=== PATIENT | female | born 1960 | race Caucasian/White ===

== ENCOUNTER 2017-01-14 15:40 | Emergency (ER) | payer MEDICAID ==
[2017-01-14] MEDS ORDERED: HYDROCODONE/ACETAMINOPHEN 5-325 MG TABLET PO ONE (16:09)
--- NOTE | 2017-01-14 16:10 | ER Document Report ---
ED Medical Screen (RME) - General Chief Complaint: Breast Problem Stated Complaint: PAIN UNDER LEFT BREAST AND SHOULDER PAIN Time Seen by Provider: 01/14/17 15:59 Mode of Arrival: Ambulatory Information source: Patient TRAVEL OUTSIDE OF THE [place] IN LAST 30 DAYS: No - HPI Patient complains to provider of: Left rib/chest pain Notes: 01/14/17 16:10 Patient is a 56-year-old female presenting to the emergency room today complaining of left rib/chest pain this been going on for years but worsening over the past few months, she denies any trauma or injury - Related Data Allergies/Adverse Reactions: No Known Allergies Allergy (Verified 01/14/17 15:46) Past Medical History Renal/ Medical History: Denies: Hx Peritoneal Dialysis Physical Exam - Vital signs Vitals: Temp Pulse Resp BP Pulse Ox 97.6 F 64 16 132/71 H 98 01/14/17 15:46 01/14/17 15:46 01/14/17 15:46 01/14/17 15:46 01/14/17 15:46 Course - Vital Signs Vital signs: Temp Pulse Resp BP Pulse Ox 97.6 F 64 16 132/71 H 98 01/14/17 15:46 01/14/17 15:46 01/14/17 15:46 01/14/17 15:46 01/14/17 15:46
[2017-01-14 17:02] LABS: ABSOLUTE BASOPHILS # (AUTO) 0.1 10^3/uL (0.0-0.2); ABSOLUTE EOSINOPHILS # (AUTO) 2.1 10^3/uL (0.0-0.6); ABSOLUTE LYMPHOCYTES (AUTO) 2.6 10^3/uL (0.5-4.7); ABSOLUTE MONOCYTES (AUTO) 0.5 10^3/uL (0.1-1.4); ABSOLUTE NEUT (AUTO) 4.3 10^3/uL (1.7-8.2); BASOPHILS % (AUTO) 0.8 % (0-2); HEMOGLOBIN 15.5 g/dL (12.0-15.5); HGB HCT DIFFERENCE 1.5; LYMPHOCYTES % (AUTO) 27.2 % (13-45); MEAN CORPUSCULAR HEMOGLOBIN 30.2 pg (27.0-33.4); MEAN CORPUSCULAR HGB CONC 34.5 g/dL (32.0-36.0); MEAN CORPUSCULAR VOLUME 88 fl (80-97); MONOCYTES % (AUTO) 5.3 % (3-13); RED BLOOD COUNT 5.14 10^6/uL (3.72-5.28); RED CELL DISTRIBUTION WIDTH 13.4 % (11.5-14.0); SEGMENTED NEUTROPHILS % (AUTO) 44.7 % (42-78); WHITE BLOOD COUNT 9.7 10^3/uL (4.0-10.5)
[2017-01-14 17:19] LABS: ALANINE AMINOTRANSFERASE 52 U/L (9-52); ALBUMIN 4.7 g/dL (3.5-5.0); ALKALINE PHOSPHATASE 79 U/L (38-126); ANION GAP 14 (5-19); ASPARTATE AMINO TRANSFERASE 22 U/L (14-36); BILIRUBIN,DIRECT 0.4 mg/dL (0.0-0.4); BILIRUBIN,TOTAL 0.9 mg/dL (0.2-1.3); BLOOD UREA NITROGEN 9 mg/dL (7-20); CALCIUM 9.9 mg/dL (8.4-10.2); CARBON DIOXIDE 27 mmol/L (22-30); CHLORIDE 104 mmol/L (98-107); CREATINE KINASE 66 U/L (30-135); CREATININE RESULT 0.75 mg/dL (0.52-1.25); GLUCOSE 77 mg/dL (75-110); POTASSIUM 4.3 mmol/L (3.6-5.0); SODIUM 144.7 mmol/L (137-145); TOTAL PROTEIN 7.4 g/dL (6.3-8.2)
[2017-01-14 17:31] LABS: CREATINE KINASE MB 0.62 ng/mL (<4.55)
[2017-01-14 17:32] LABS: APPEARANCE,URINE CLEAR; BILIRUBIN,URINE NEGATIVE (NEGATIVE); GLUCOSE, URINE NEGATIVE (NEGATIVE); KETONES,URINE NEGATIVE (NEGATIVE); LEUKOCYTE ESTERASE,URINE NEGATIVE (NEGATIVE); NITRITE,URINE NEGATIVE (NEGATIVE); PROTEIN,URINE NEGATIVE (NEGATIVE); URINE SPECIFIC GRAVITY 1.003; UROBILINOGEN,URINE NEGATIVE mg/dL (<2.0)
[2017-01-14 17:33] LABS: TROPONIN I < 0.012 ng/mL
--- NOTE | 2017-01-14 17:41 | EKG REPORT ---
SEVERITY:- ABNORMAL ECG - SINUS RHYTHM FIRST DEGREE AV BLOCK BORDERLINE LEFT ANTERIOR FASCICULAR BLOCK : Confirmed by: Jesse Pena MD 14-Jan-2017 17:40:32
--- NOTE | 2017-01-14 17:49 | RADIOLOGY REPORT (SQ) ---
EXAM DESCRIPTION: CHEST PA/LAT COMPLETED DATE/TIME: 01/14/2017 5:36 pm REASON FOR STUDY: left rib pain COMPARISON: None. EXAM PARAMETERS: NUMBER OF VIEWS: two views TECHNIQUE: Digital Frontal and Lateral radiographic views of the chest acquired. RADIATION DOSE: NA LIMITATIONS: none FINDINGS: LUNGS AND PLEURA: No consolidation, masses or pneumothorax. No pleural effusion. MEDIASTINUM AND HILAR STRUCTURES: No masses or contour abnormalities. HEART AND VASCULAR STRUCTURES: Heart normal size. No evidence for failure. BONES: No acute findings. HARDWARE: None in the chest. OTHER: No other significant finding. IMPRESSION: No acute finding. TECHNICAL DOCUMENTATION: JOB ID: [id number] [employer]- All Rights Reserved
[2017-01-14] MEDS ORDERED: FAMOTIDINE 20 MG TABLET PO ONE (18:38)
[2017-01-14] MEDS ORDERED: SUCRALFATE 1 GM TABLET PO ONE (18:38)
[2017-01-14] MEDS ORDERED: ONDANSETRON 4 MG TAB.RAPDIS PO ONE (18:38)
--- NOTE | 2017-01-14 18:42 | ER Document Report ---
ED General - General Mode of Arrival: Ambulatory TRAVEL OUTSIDE OF THE [place] IN LAST 30 DAYS: No - HPI Onset: Just prior to arrival Associated symptoms: Other - see HPI <OMER FRANCO - Last Filed: 01/14/17 19:27> <MAJO FREED - Last Filed: 01/14/17 22:54> - General Chief Complaint: Breast Problem Stated Complaint: PAIN UNDER LEFT BREAST AND SHOULDER PAIN Time Seen by Provider: 01/14/17 15:59 Notes: Patient is a 56 year old female who presents to the ED with complaints of left rib pain and possible LUQ abdominal pain. Patient states it has been constant for the last 2 weeks. She states eating improves the pain for a brief period of time. She also has pain on her left shoulder and left neck muscles. She denies a rash. She does have a hx of shingles. (OMER FRANCO) - Related Data Allergies/Adverse Reactions: No Known Allergies Allergy (Verified 01/14/17 15:46) Past Medical History - General Information source: Patient - Social History Smoking Status: Unknown if Ever Smoked - Past Medical History Cardiac Medical History: Reports: Hx Hypercholesterolemia Renal/ Medical History: Denies: Hx Peritoneal Dialysis <OMER FRANCO - Last Filed: 01/14/17 19:27> - Social History Family History: Reviewed & Not Pertinent <MAJO FREED - Last Filed: 01/14/17 22:54> Review of Systems - Review of Systems Constitutional: No symptoms reported EENT: No symptoms reported Cardiovascular: No symptoms reported Respiratory: No symptoms reported Gastrointestinal: See HPI, Abdominal pain Genitourinary: No symptoms reported Female Genitourinary: No symptoms reported Musculoskeletal: See HPI, Other - left rib pain, left shoulder and neck muscle pain Skin: No symptoms reported Hematologic/Lymphatic: No symptoms reported Neurological/Psychological: No symptoms reported <OMER FRANCO - Last Filed: 01/14/17 19:27> Physical Exam - Vital signs Interpretation: Normal - General General appearance: Appears well, Alert - HEENT Head: Normocephalic, Atraumatic Eyes: Normal Pupils: PERRL - Respiratory Respiratory status: No respiratory distress Chest status: Nontender Breath sounds: Normal Chest palpation: Tender - Anterolateral left chest wall. No evidence for rash - Cardiovascular Rhythm: Regular Heart sounds: Normal auscultation Murmur: No - Abdominal Inspection: Normal Distension: No distension Bowel sounds: Normal Tenderness: Nontender Organomegaly: No organomegaly - Back Back: Normal, Nontender - Extremities General upper extremity: Normal inspection, Nontender, Normal color, Normal ROM , Normal temperature General lower extremity: Normal inspection, Nontender, Normal color, Normal ROM , Normal temperature, Normal weight bearing. No: Aida's sign - Neurological Neuro grossly intact: Yes Cognition: Normal Orientation: AAOx4 [place] Coma Scale Eye Opening: Spontaneous [place] Coma Scale Verbal: Oriented [place] Coma Scale Motor: Obeys Commands [place] Coma Scale Total: 15 Speech: Normal Motor strength normal: LUE, RUE, LLE, RLE Sensory: Normal - Psychological Associated symptoms: Normal affect, Normal mood - Skin Skin Temperature: Warm Skin Moisture: Dry Skin Color: Normal <MAJO FREED - Last Filed: 01/14/17 22:54> - Vital signs Vitals: Temp Pulse Resp BP Pulse Ox 97.6 F 64 16 132/71 H 98 01/14/17 15:46 01/14/17 15:46 01/14/17 15:46 01/14/17 15:46 01/14/17 15:46 Course - Laboratory Result Diagrams: 01/14/17 16:50 01/14/17 16:50 <OMER FRANCO - Last Filed: 01/14/17 19:27> - Laboratory Result Diagrams: 01/14/17 16:50 01/14/17 16:50 - Diagnostic Test Radiology reviewed: Reports reviewed - EKG Interpretation by Ma EKG shows normal: Sinus rhythm Rate: Normal Rhythm: NSR <MAJO FREED - Last Filed: 01/14/17 22:54> - Re-evaluation Re-evalutation: 01/14/17 Patient comes in with left-sided abdominal/chest wall pain which she has had over the last few months. Patient states that the pain is sometimes worse a few hours after eating. Patient denies any trouble breathing. Patient has no medical problems. Patient recently moved here and does not have a primary care doctor at this time. Feels better after GI cocktail. Blood work, EKG, chest x- ray with no acute findings. Patient is instructed to follow-up with her doctor and probably GI. She has been given a list of primary's and the contact information for gastroenterology. Return immediately if any worsening or concerning symptoms. Patient understands and agrees with this plan. Stable for discharge. (MAJO FREED) - Vital Signs Vital signs: Temp Pulse Resp BP Pulse Ox 98.1 F 52 L 16 130/66 H 99 01/14/17 21:54 01/14/17 21:54 01/14/17 21:54 01/14/17 21:54 01/14/17 21:54 - Laboratory Laboratory results interpreted by me: 01/14/17 16:50 Eosinophils % 22.0 H Absolute Eosinophils 2.1 H Discharge <OMER FRANCO - Last Filed: 01/14/17 19:27> <MAJO FREED - Last Filed: 01/14/17 22:54> - Discharge Clinical Impression: Chest wall pain Gastritis Qualifiers: Gastritis type: unspecified gastritis Chronicity: acute Gastritis bleeding: presence of bleeding unspecified Qualified Code(s): K29.00 - Acute gastritis without bleeding Condition: Stable Disposition: HOME, SELF-CARE Instructions: Chest Wall Pain ([facility]), Family Physicians / Practices, Gastritis ( [facility]), Gastroenterology Prescriptions: Omeprazole 20 mg PO DAILY #30 capsule. Ranitidine HCl 150 mg PO BID #60 tablet Sucralfate [Carafate 1 gm Tablet] 1 gm PO ACHS #120 tablet Scribe Attestation: 01/14/17 22:53 I personally performed the services described in the documentation, reviewed and edited the documentation which was dictated to the scribe in my presence, and it accurately records my words and actions. (MAJO FREED) Scribe Documentation - Scribe Written by Lesli:: lesli Simpson, 01/14/17, 0729 acting as scribe for :: Pascual <OMER FRANCO - Last Filed: 01/14/17 19:27>
[2017-01-14 22:05] VITALS: BP 130/66
== END 2017-01-14 21:59 | disposition home or self-care (01) ==
LOC: ER 15:40
DX: K29.00 Acute gastritis without bleeding (principal); R07.89 Other chest pain; N64.4 Mastodynia; M25.512 Pain in left shoulder; R07.81 Pleurodynia; R10.12 Left upper quadrant pain
CPT/HCPCS: 93005; 99284; 36415; 82553; 82550; 83690; 85025; 80053; 81001; 84484; 71020; 93010; S0119

== ENCOUNTER → 2017-08-06 | Day surgery (SDC) | payer MEDICAID ==
[~2017-08-06] MED LIST: LIDOCAINE 1% INJ-PF (10 MG/ML) 30 ML SDV ONE
--- NOTE | 2017-08-06 15:41 | RADIOLOGY REPORT (SQ) ---
EXAM DESCRIPTION: MRI LT UPPER JOINT WITH COMPLETED DATE/TIME: 08/06/2017 2:33 pm REASON FOR STUDY: M75.02 ADHESIVE CAPSULITIS OF LEFT SHOULDER M75.02 ADHESIVE CAPSULITIS OF LEFT SH OULDER COMPARISON: None. TECHNIQUE: Left shoulder images acquired and stored on PACS. Oblique coronal, oblique sagittal, and axial imaging to include fat sensitive sequences as T1, water sensitive sequences as FST2/STIR, and c ontrast sensitive sequences as FST1. LIMITATIONS: Motion artifact FINDINGS: JOINT DISTENTION: Adequate distention for interpretation. No contrast in the subacromial bursa. BONE MARROW AND CORTEX: Subchondral cyst formation anterior lateral humeral head. AC JOINT: Type II acromion. Mild AC joint arthropathy. GLENOHUMERAL JOINT: Central cartilage loss. Small osteophytes. ROTATOR CUFF: Cuff musculature is symmetric. There is diffuse tendinopathy. Partial thickness artic ular surface tear of the supraspinatus. No full-thickness tear. LABRUM AND BICEPS LABRAL COMPLEX: Sublabral recess. Increased signal in the biceps anchor and biceps tendon. Distal biceps is normal. INFERIOR LABRAL COMPLEX: Intact. ADJACENT SOFT TISSUES: No masses or nodes. OTHER: No other significant finding. IMPRESSION: 1. Tendinopathy. Partial thickness articular surface tear of the supraspinatus. 2. Biceps tendinopathy. No acute labral tear. 3. AC and glenohumeral joint arthropathy. TECHNICAL DOCUMENTATION: JOB ID: [id number] [employer]- All Rights Reserved Reading location - IP/workstation name: [email or web address]
--- NOTE | 2017-08-06 15:47 | RADIOLOGY REPORT (SQ) ---
EXAM DESCRIPTION: ARTHRO SHOULDER INJECTION; FLUORO/NEEDLE PLACEMENT COMPLETED DATE/TIME: 08/06/2017 3:33 pm REASON FOR STUDY: M75.02 ADHESIVE CAPSULITIS OF LEFT SHOULDER M75.02 ADHESIVE CAPSULITIS OF LEFT SH OULDER COMPARISON: None. FLUOROSCOPY TIME: 18 seconds 3 images saved to PACS. LIMITATIONS: None. PROCEDURE: Procedure, risks, benefits and alternatives explained to patient who then gave written co nsent. The left shoulder was marked and a time out was called for correct procedure verification. Po sterior entry site marked using fluoroscopic guidance. Shoulder prepped and draped using sterile dalila hnique. Local anesthesia achieved using 1% lidocaine injection. Hypodermic needle introduced into t he joint space under direct fluoroscopic visualization. Non-ionic contrast instilled to confirm intra -articular position. Dilute gadolinium solution then injected. Needle removed and entry site covered with sterile bandage. No immediate complications noted. TECHNIQUE: Digital images acquired during fluoroscopy and stored on PACS. Patient immediately take n to the MR suite for additional imaging. INJECTION LOCATION: Posterior left shoulder. CONTRAST TYPE AND AMOUNT: 1 cc Isovue. 10 cc Prohance/Saline mixture. IMPRESSION: SUCCESSFUL NEEDLE PLACEMENT AND INJECTION FOR LEFT SHOULDER MR ARTHROGRAM USING POSTERIO R APPROACH. COMMENT: Quality ID 145: Final reports for procedures using fluoroscopy that document radiation exp osure indices, or exposure time and number of fluorographic images (if radiation exposure indices are not available) TECHNICAL DOCUMENTATION: JOB ID: [id number] [email or web address]- All Rights Reserved Reading location - IP/workstation name: [email or web address]-[email or web address]
--- NOTE | 2017-08-06 15:47 | RADIOLOGY REPORT (SQ) ---
EXAM DESCRIPTION: ARTHRO SHOULDER INJECTION; FLUORO/NEEDLE PLACEMENT COMPLETED DATE/TIME: 08/06/2017 3:33 pm REASON FOR STUDY: M75.02 ADHESIVE CAPSULITIS OF LEFT SHOULDER M75.02 ADHESIVE CAPSULITIS OF LEFT SH OULDER COMPARISON: None. FLUOROSCOPY TIME: 18 seconds 3 images saved to PACS. LIMITATIONS: None. PROCEDURE: Procedure, risks, benefits and alternatives explained to patient who then gave written co nsent. The left shoulder was marked and a time out was called for correct procedure verification. Po sterior entry site marked using fluoroscopic guidance. Shoulder prepped and draped using sterile dalila hnique. Local anesthesia achieved using 1% lidocaine injection. Hypodermic needle introduced into t he joint space under direct fluoroscopic visualization. Non-ionic contrast instilled to confirm intra -articular position. Dilute gadolinium solution then injected. Needle removed and entry site covered with sterile bandage. No immediate complications noted. TECHNIQUE: Digital images acquired during fluoroscopy and stored on PACS. Patient immediately take n to the MR suite for additional imaging. INJECTION LOCATION: Posterior left shoulder. CONTRAST TYPE AND AMOUNT: 1 cc Isovue. 10 cc Prohance/Saline mixture. IMPRESSION: SUCCESSFUL NEEDLE PLACEMENT AND INJECTION FOR LEFT SHOULDER MR ARTHROGRAM USING POSTERIO R APPROACH. COMMENT: Quality ID 145: Final reports for procedures using fluoroscopy that document radiation exp osure indices, or exposure time and number of fluorographic images (if radiation exposure indices are not available) TECHNICAL DOCUMENTATION: JOB ID: [id number] [employer]- All Rights Reserved Reading location - IP/workstation name: [email or web address]-[email or web address]
== END ==
LOC: RAD 12:04
PROVIDERS: ATTEND Orthopaedic Surgery
DX: M75.02 Adhesive capsulitis of left shoulder (principal)
CPT/HCPCS: 73222; 77002; 23350; A9576; J3490

== ENCOUNTER 2017-09-06 10:15 | Day surgery (SDC) | payer MEDICAID ==
[2017-08-29 09:35] LABS: HEMATOCRIT 43.7 % (36.0-47.0); HEMOGLOBIN 15.1 g/dL (12.0-15.5); MEAN CORPUSCULAR HEMOGLOBIN 29.9 pg (27.0-33.4); MEAN CORPUSCULAR HGB CONC 34.6 g/dL (32.0-36.0); MEAN CORPUSCULAR VOLUME 86 fl (80-97); PLATELET COUNT 231 10^3/uL (150-450); RED BLOOD COUNT 5.05 10^6/uL (3.72-5.28); RED CELL DISTRIBUTION WIDTH 13.4 % (11.5-14.0); WHITE BLOOD COUNT 8.3 10^3/uL (4.0-10.5)
[2017-08-29 09:37] LABS: APPEARANCE,URINE SLIGHTLY-CLOUDY; BILIRUBIN,URINE NEGATIVE (NEGATIVE); GLUCOSE, URINE NEGATIVE (NEGATIVE); KETONES,URINE NEGATIVE (NEGATIVE); LEUKOCYTE ESTERASE,URINE NEGATIVE (NEGATIVE); NITRITE,URINE NEGATIVE (NEGATIVE); PROTEIN,URINE NEGATIVE (NEGATIVE); URINE SPECIFIC GRAVITY 1.019
[2017-08-29 09:43] LABS: COLOR,URINE YELLOW
[2017-08-29 09:57] LABS: ANION GAP 12 (5-19); BLOOD UREA NITROGEN 11 mg/dL (7-20); CARBON DIOXIDE 26 mmol/L (22-30); CHLORIDE 104 mmol/L (98-107); GLUCOSE 98 mg/dL (75-110); POTASSIUM 4.5 mmol/L (3.6-5.0)
--- NOTE | 2017-08-29 10:08 | RADIOLOGY REPORT (SQ) ---
EXAM DESCRIPTION: CHEST PA/LATERAL COMPLETED DATE/TIME: 08/29/2017 9:46 am REASON FOR STUDY: PRE-OP COMPARISON: Two-view chest 01/14/2017 EXAM PARAMETERS: NUMBER OF VIEWS: two views TECHNIQUE: Digital Frontal and Lateral radiographic views of the chest acquired. RADIATION DOSE: NA LIMITATIONS: none FINDINGS: LUNGS AND PLEURA: No opacities, masses or pneumothorax. No pleural effusion. MEDIASTINUM AND HILAR STRUCTURES: No masses or contour abnormalities. HEART AND VASCULAR STRUCTURES: Heart normal size. No evidence for failure. BONES: No acute findings. HARDWARE: None in the chest. OTHER: No other significant finding. IMPRESSION: NO SIGNIFICANT RADIOGRAPHIC FINDING IN THE CHEST. TECHNICAL DOCUMENTATION: JOB ID: [id number] [employer] - [employer]- All Rights Reserved Reading location - IP/workstation name: [email or web address]
--- NOTE | 2017-08-29 10:15 | EKG REPORT ---
SEVERITY:- ABNORMAL ECG - SINUS RHYTHM FIRST DEGREE AV BLOCK LEFT AXIS DEVIATION LEFT VENTRICULAR HYPERTROPHY : Confirmed by: Danilo Loredo 29-Aug-2017 10:14:44
[~2017-09-06 10:15] MED LIST changes: +BUPIVACAINE HCL 0.5 % INJ/PF 30 ML SDV ONE; +EPINEPHRINE INJ/PF 1 MG/1 ML AMPULE ONE; +LACTATED RINGERS 1000 ML IV PRN; +LIDOCAINE 0.5% INJ-PF (5 MG/ML) 50 ML SDV SUBCUT PRN; -LIDOCAINE 1% INJ-PF (10 MG/ML) 30 ML SDV ONE
[2017-09-06] MEDS ORDERED: FENTANYL CITRATE INJ/PF 100 MCG/2 ML AMPUL ONE (15:16)
[2017-09-06] MEDS ORDERED: HYDROMORPHONE HCL INJ/PF 2 MG/ML AMPULE ONE (15:17)
[2017-09-06] MEDS ORDERED: MIDAZOLAM 2 MG/2 ML INJ ONE (15:17)
[2017-09-06] MEDS ORDERED: ACETAMINOPHEN 1,000 MG/100 ML RTUPB IV ONE (15:17)
[2017-09-06] MEDS ORDERED: PROPOFOL INJ 200 MG/20 ML VIAL IV ONE (15:17)
[2017-09-06] MEDS ORDERED: SUCCINYLCHOLINE CHLORIDE INJ 200 MG/10 ML VIAL ONE (15:43)
[2017-09-06] MEDS ORDERED: DIPHENHYDRAMINE HCL 50 MG/ML VIAL IV PRN (16:48)
[2017-09-06] MEDS ORDERED: FENTANYL CITRATE INJ/PF 100 MCG/2 ML AMPUL IV PRN ×3 (16:48)
[2017-09-06] MEDS ORDERED: MEPERIDINE HCL/PF INJ 25 MG/1 ML DISP.SYRIN IV PRN (16:48)
[2017-09-06] MEDS: LORAZEPAM INJ 2 MG/1 ML VIAL ONE ×2 (18:43→19:00)
--- NOTE | 2017-09-06 18:50 | Discharge Summary ---
Discharge Summary (SDC) - Discharge Final Diagnosis: Left shoulder arthroscopic extensive debridement, rotator cuff repair, subpectoralis biceps tenodesis Date of Surgery: 09/06/17 Discharge Date: 09/06/17 Condition: Good Treatment or Instructions: Patient is instructed to follow up in 10-14 days. Patient instructed to remove dressing in 4 days then can shower and apply Band- Aids as needed. Patient to wear sling for comfort but okay to remove for shower and pendulum exercises. Pendulum exercises are instructed to be done 3 times a day ideally with breakfast, lunch, dinners and showers. Patient instructed to call if there is any signs of redness or drainage fevers or chills. Prescriptions: Oxycodone HCl/Acetaminophen [Percocet 5-325 mg Tablet] 1 - 2 tab PO ASDIR PRN # 60 tablet PRN Reason: Referrals: FARRAH RUTHERFORD MD [Primary Care Provider] - Discharge Diet: As Tolerated Respiratory Treatments at Home: Deep Breathing/Coughing Discharge Activity: No Driving, No Lifting/Push/Pulling, Walk Frequently Home Care Assistance: None Needed Report the Following to Your Physician Immediately: Shortness of Breath, Vomiting, Increase in Pain, Fever over 101 Degrees, Unusual Bleeding, Redness, Swelling, Warmth, Increased Soreness, Drainage-Yellow, Drainage-Quijano, Drainage- Green, Drainage-Foul Smelling
[2017-09-06] MEDS: FENTANYL CITRATE INJ/PF 100 MCG/2 ML AMPUL ONE ×2 (18:57→19:09)
[2017-09-06] MEDS ORDERED: OXYCODONE-ACETAMINOPHEN 5-325 MG TABLET PO PRN (19:23)
[2017-09-06] MEDS ORDERED: ONDANSETRON HCL INJ/PF 4 MG/2 ML SDV IV PRN (19:24)
[2017-09-06] MEDS: OXYCODONE-ACETAMINOPHEN 5-325 MG TABLET PO PRN (22:05)
[2017-09-06] MEDS: CEFAZOLIN 2 GM/D5W RTU 2 GM/50 ML RTUPB IV PRN ×3 (22:06→22:27)
[2017-09-06] MEDS ORDERED: CLONAZEPAM 1 MG TABLET PO ONE (22:15)
[2017-09-06] MEDS ORDERED: ATORVASTATIN CALCIUM 20 MG TABLET PO ONE (22:15)
[2017-09-07] MEDS: OXYCODONE-ACETAMINOPHEN 5-325 MG TABLET PO PRN (03:13)
[2017-09-07 08:35] VITALS: BP 110/52
[2017-09-07] MEDS ORDERED: CLONAZEPAM 1 MG TABLET PO SCH (10:00)
[2017-09-07] MEDS ORDERED: SERTRALINE HCL 50 MG TABLET PO SCH (10:00)
[2017-09-07] MEDS ORDERED: ATORVASTATIN CALCIUM 20 MG TABLET PO SCH (22:00)
--- NOTE | 2017-09-21 15:22 | Operative Report ---
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 After successfully induced and intubated the patient patient was placed in the beachchair position the head and endotracheal tube was secured appropriately. The left shoulder was prepped and draped in a normal surgical fashion. A timeout was done identifying the left shoulder as the correct site. After inflating the glenohumeral joint with sterile saline solution an 11 blade was used to establish the posterior portal. The arthroscope was introduced and return of fluid was seen showing that we successfully penetrated the glenohumeral joint. With the use of spinal needle we're able to wilian the anterior portal and using an 11 blade able to establish anterior portal. A cannula was introduced through the anterior portal. At this point diagnostic scope was done. At first glance patient had a type II SLAP tear and was probed showing the detachment. Also when I turned my attention to the rotator cuff was evidence of showing the full-thickness rotator cuff tear. The articulation of the glenohumeral joint showed grade 3 and 4 changes with no loose bodies. Through the anterior portal I proceeded then to do an extensive debridement of the labrum, humeral head, glenoid. Once this had been completed I turned my attention to the rotator cuff A lateral portal was established 11 blade. Passport cannula was introduced to secure the lateral portal. 4.0mm shaver was introduced and was used to debride edges of the tear as well as bur the bone for preparation of anchor placement. Once I was satisfied with the preparation I then redirected my scope into the subacromial space. Bursectomy was done. Evaluation of the tear was delineated and visualize. A percutaneous incision was then just adjacent to the acromion on the lateral aspect. Through this percutaneous hole the awl was used to prepare the hole for an anchor. Cornelia was percutaneously sent flushed with the bone just adjacent to the articular margin.. Sutures were passed through the anterior portal for proper suture management. With the use of the scorpion and I proceeded to pass the sutures through the rotator cuff tendon with proper suture management was able to pass the strands either through percutaneous hole or the anterior portal. Once I was satisfied with placement of all my sutures I then proceeded to do my arthroscopic knots. At this point the strands were used to do our lateral row.Bicomposite swivel lock were used for the lateral row fixation. Lateral aspect of the humerus was then cleaned off with a shaver and electrocautery. Once identified placementof the swivel lock, I proceeded to use my awl to do my hole. This this point the sutures were adequately tensioned and secured. Swivel lock was inserted and screwed in, securing and increasing the footprint of the rotator cuff repair. Remaining strands were cut with the arthroscopic cutter. Final pictures were taking showing my repair. At this point fluid from the shoulder was removed camera and instruments were all removed. I turned my attention to the subpectoralis biceps tenodesis portion of the case. I used a 15 blade and did a inch and a half incision on the anterior aspect of the arm adjacent to the axillary fold. I used electrocautery to obtain hemostasis of the subcutaneous tissue bleed. I used Metzenbaum scissors and 2 pierced and split the fascial tissue covering the biceps and deltoid. I used then combination of my finger and 90 clamp to palpate the long head of biceps and bicipital groove and capturing hook the tendon that was tenotomized. This was pulled through my incision successfully. I used a fiber loop to then secure my muscular tendinous portion which was approximately 2 cm. The remaining biceps was cut and discarded. The loop was, and the 2 strands were then fed through the tenodesis button. These were secured and then I proceeded to use Homans to expose the side of the humeral shaft and was able to used a 4 mm spade tip guidepin to drill the anterior cortex. This was removed and then the loaded button was then inserted and then removing the disposable portion was able to flip the button and securing the biceps onto the anterior cortex of the humerus. Half hitch knots were done to further secure the biceps. Remaining strand was cut with a fiber wire scissors. I used 0 Vicryl to approximate the subcutaneous tissue. I used 3-0 nylon to do closure of my incision. I proceeded to close my portal sites with 3 -0 nylon. Xeroform 4 x 4 dressing followed by ABDs pads and Medipore tape was applied. Patient was placed in a sling and returned to supine position where he was successfully extubated and taken to PACU in stable condition.
== END 2017-09-07 10:17 | disposition home or self-care (01) ==
LOC: OROUT 10:15 → 4S 20:26 → OROUT 09-07 10:17
PROVIDERS: ATTEND Orthopaedic Surgery
DX: M75.112 Incomplete rotator cuff tear or rupture of left shoulder, not specified as traumatic (principal); S43.432A Superior glenoid labrum lesion of left shoulder, initial encounter; S43.492A Other sprain of left shoulder joint, initial encounter; X58.XXXA Exposure to other specified factors, initial encounter; M65.812 Other synovitis and tenosynovitis, left shoulder; M19.012 Primary osteoarthritis, left shoulder; M75.02 Adhesive capsulitis of left shoulder; F17.210 Nicotine dependence, cigarettes, uncomplicated; E78.5 Hyperlipidemia, unspecified; E66.9 Obesity, unspecified; F41.0 Panic disorder [episodic paroxysmal anxiety]; F32.9 Major depressive disorder, single episode, unspecified; Z79.899 Other long term (current) drug therapy; Z79.1 Long term (current) use of non-steroidal anti-inflammatories (NSAID); Z68.37 Body mass index [BMI] 37.0-37.9, adult
CPT/HCPCS: 93005; 36415; 85027; 80048; 81001; 71046; 93010; 29823; 29827; 24340; C1713 ×2; J2250; J3490 ×5; J0171; J3010; J1170; J2060; J0330; J2704; J0690; J0131; 1630